=== PATIENT | male | born 1995 | race African-American/Black ===

== ENCOUNTER 2021-06-13 15:25 | Inpatient (IN) | payer OTHER ==
[~2021-06-13] VITALS: Ht 170.2 cm; Wt 98.4 kg
[2021-06-13] MEDS: ACETAMINOPHEN 325 MG TABLET PO PRN (19:07)
[2021-06-13] MEDS: HYDROCODONE/ACETAMINOPHEN 5-325 MG TABLET PO PRN (19:20)
[2021-06-13] MEDS: SENNA 187 MG TABLET PO SCH (20:51)
[2021-06-13] MEDS: DOCUSATE SODIUM 250 MG CAPSULE PO SCH (20:51)
[2021-06-13] MEDS ORDERED: DOCUSATE SODIUM 100 MG CAPSULE PO SCH (21:00)
[2021-06-13 22:08] VITALS: BP 131/77
[2021-06-13 22:11] VITALS: BP 131/77
[2021-06-13] MEDS: GABAPENTIN 300 MG CAPSULE PO SCH (23:31)
[2021-06-14 00:08] VITALS: BP 130/73
[2021-06-14] MEDS: HYDROCODONE/ACETAMINOPHEN 5-325 MG TABLET PO PRN ×3 (02:38→19:47)
[2021-06-14] MEDS: GABAPENTIN 300 MG CAPSULE PO SCH ×3 (08:00→23:13)
[2021-06-14] MEDS: DOCUSATE SODIUM 250 MG CAPSULE PO SCH ×2 (08:00→19:47)
[2021-06-14] MEDS: ACETAMINOPHEN 325 MG TABLET PO PRN (08:01)
[2021-06-14 09:25] VITALS: BP 134/95
[2021-06-14 15:02] LABS: BASOPHILS % (AUTO) 0.3 % (0.0-2.0); EOSINOPHILS % (AUTO) 1.8 % (1.0-6.0); HEMATOCRIT 40.3 % (41-53); HEMOGLOBIN 13.6 g/dL (13.5-17.5); LYMPHOCYTES # (AUTO) 1.5 K/uL (1.0-4.8); LYMPHOCYTES % (AUTO) 27.1 % (22.0-44.0); MEAN CORPUSCULAR HEMOGLOBIN 28.2 pg (26.0-34.0); MEAN CORPUSCULAR HGB CONC 33.7 G/dL (31.0-37.0); MEAN CORPUSCULAR VOLUME 84 fL (80-100); MONOCYTES # (AUTO) 0.3 K/uL (0.1-1.0); MONOCYTES % (AUTO) 6.3 % (2.0-9.0); NEUTROPHILS # (AUTO) 3.5 K/uL (1.8-7.7); NEUTROPHILS % (AUTO) 64.5 % (40.0-70.0); PLATELET COUNT (AUTO) 224 K/uL (150-450); RED BLOOD CELL COUNT(AUTO) 4.81 MIL/uL (4.50-5.90); RED CELL DISTRIBUTION WIDTH 12.6 % (11.5-14.5)
[2021-06-14 15:14] VITALS: BP 123/78
[2021-06-14] MEDS: IBUPROFEN 400 MG TABLET PO PRN (15:14)
[2021-06-14 15:18] LABS: ALANINE AMINOTRANSFERASE 51 U/L (12-78); ALBUMIN 3.8 g/dL (3.4-5.0); ALKALINE PHOSPHATASE 82 U/L (46-116); ANION GAP 10 mmol/L (8-16); ASPARTATE AMINOTRANSFERASE 33 U/L (15-37); BILIRUBIN,TOTAL 0.5 mg/dL (0.1-1.0); CARBON DIOXIDE 29 mmol/L (22-29); CHLORIDE 96 mmol/L (98-107); CREATININE 0.94 mg/dL (0.60-1.30); GLOMERULAR FILTR. RATE CALC > 60 mL/min (>60); GLUCOSE,RANDOM 90 mg/dL (70-110); POTASSIUM 4.1 mmol/L (3.5-5.1); SODIUM SERUM 135 mmol/L (136-145); TOTAL PROTEIN, SERUM 8.3 g/dL (6.4-8.2); UREA NITROGEN, BLOOD 10 mg/dL (7-18)
[2021-06-14] MEDS: SENNA 187 MG TABLET PO SCH (19:47)
[2021-06-14] MEDS: HEPARIN SODIUM,PORCINE 5,000 UNITS/ML VIAL SQ SCH (23:13)
[2021-06-15] VITALS: BP 120/73
[2021-06-15] MEDS: IBUPROFEN 400 MG TABLET PO PRN ×2 (03:47→17:15)
[2021-06-15] MEDS: ETHYL ALCOHOL 62% ANTISEPTIC NASAL INHALANT 0.6 ML AMPUL NASAL SCH ×2 (08:15→20:08)
[2021-06-15] MEDS: GABAPENTIN 300 MG CAPSULE PO SCH ×3 (08:15→23:47)
[2021-06-15] MEDS: DOCUSATE SODIUM 250 MG CAPSULE PO SCH ×2 (08:15→20:08)
[2021-06-15] MEDS: HEPARIN SODIUM,PORCINE 5,000 UNITS/ML VIAL SQ SCH ×3 (08:15→23:47)
[2021-06-15] MEDS: ACETAMINOPHEN 325 MG TABLET PO PRN (08:23)
[2021-06-15 09:05] VITALS: BP 104/58
[2021-06-15 16:01] VITALS: BP 120/75
[2021-06-15] MEDS: HYDROCODONE/ACETAMINOPHEN 5-325 MG TABLET PO PRN (18:03)
[2021-06-15] MEDS: SENNA 187 MG TABLET PO SCH (20:08)
[2021-06-16] VITALS: BP 115/71
[2021-06-16 07:44] VITALS: BP 117/65
[2021-06-16] MEDS: IBUPROFEN 400 MG TABLET PO PRN ×2 (07:44→23:31)
[2021-06-16] MEDS: GABAPENTIN 300 MG CAPSULE PO SCH ×3 (07:44→23:26)
[2021-06-16] MEDS: DOCUSATE SODIUM 250 MG CAPSULE PO SCH ×2 (08:14→20:50)
[2021-06-16] MEDS: HEPARIN SODIUM,PORCINE 5,000 UNITS/ML VIAL SQ SCH ×3 (08:14→23:27)
[2021-06-16] MEDS: HYDROCODONE/ACETAMINOPHEN 5-325 MG TABLET PO PRN ×2 (08:14→18:33)
[2021-06-16] MEDS: ETHYL ALCOHOL 62% ANTISEPTIC NASAL INHALANT 0.6 ML AMPUL NASAL SCH ×2 (09:08→20:50)
[2021-06-16 16:19] VITALS: BP 142/51
[2021-06-16] MEDS: SENNA 187 MG TABLET PO SCH (20:50)
[2021-06-16 23:31] VITALS: BP 124/75
[2021-06-17] MEDS ORDERED: SENN8.8S6 PO (04:33)
[2021-06-17] MEDS ORDERED: GABA-1181 PO (04:33)
[2021-06-17] MEDS ORDERED: DOCU-350 PO (04:33)
[2021-06-17] MEDS ORDERED: ERGO500054 PO (04:38)
[2021-06-17] MEDS ORDERED: ACET-2247 PO (04:38)
[2021-06-17] MEDS ORDERED: IBUP-1506 PO (04:38)
[2021-06-17] MEDS: HEPARIN SODIUM,PORCINE 5,000 UNITS/ML VIAL SQ SCH ×3 (08:08→23:03)
[2021-06-17] MEDS: GABAPENTIN 300 MG CAPSULE PO SCH ×3 (08:08→23:03)
[2021-06-17] MEDS: ETHYL ALCOHOL 62% ANTISEPTIC NASAL INHALANT 0.6 ML AMPUL NASAL SCH ×2 (08:08→21:29)
[2021-06-17] MEDS: DOCUSATE SODIUM 250 MG CAPSULE PO SCH ×2 (08:10→21:29)
[2021-06-17 08:15] VITALS: BP 116/51
[2021-06-17] MEDS: IBUPROFEN 400 MG TABLET PO PRN (08:15)
[2021-06-17 16:22] VITALS: BP 143/78
[2021-06-17] MEDS: HYDROCODONE/ACETAMINOPHEN 5-325 MG TABLET PO PRN ×2 (16:22→23:03)
[2021-06-17] MEDS: SENNA 187 MG TABLET PO SCH (21:29)
[2021-06-17 23:03] VITALS: BP 128/77
[2021-06-18 08:44] VITALS: BP 117/78
[2021-06-18] MEDS: ETHYL ALCOHOL 62% ANTISEPTIC NASAL INHALANT 0.6 ML AMPUL NASAL SCH ×2 (08:44→20:49)
[2021-06-18] MEDS: HYDROCODONE/ACETAMINOPHEN 5-325 MG TABLET PO PRN (08:44)
[2021-06-18] MEDS: GABAPENTIN 300 MG CAPSULE PO SCH ×2 (08:44→15:33)
[2021-06-18] MEDS: HEPARIN SODIUM,PORCINE 5,000 UNITS/ML VIAL SQ SCH ×3 (08:44→15:37)
[2021-06-18] MEDS: DOCUSATE SODIUM 250 MG CAPSULE PO SCH ×2 (08:44→20:48)
[2021-06-18 16:00] VITALS: BP 139/64
[2021-06-18] MEDS: SENNA 187 MG TABLET PO SCH (20:48)
[2021-06-19] MEDS: GABAPENTIN 300 MG CAPSULE PO SCH ×4 (00:01→23:32)
[2021-06-19] MEDS: HEPARIN SODIUM,PORCINE 5,000 UNITS/ML VIAL SQ SCH ×4 (00:03→23:33)
[2021-06-19 00:08] VITALS: BP 134/91
[2021-06-19] MEDS: HYDROCODONE/ACETAMINOPHEN 5-325 MG TABLET PO PRN ×2 (00:08→16:38)
[2021-06-19 08:01] VITALS: BP 112/63
[2021-06-19] MEDS: ETHYL ALCOHOL 62% ANTISEPTIC NASAL INHALANT 0.6 ML AMPUL NASAL SCH ×2 (08:39→20:42)
[2021-06-19] MEDS: DOCUSATE SODIUM 250 MG CAPSULE PO SCH ×2 (08:39→20:42)
[2021-06-19] MEDS: IBUPROFEN 400 MG TABLET PO PRN (08:40)
[2021-06-19] MEDS: SENNA 187 MG TABLET PO SCH (20:42)
[2021-06-20] VITALS: BP 122/66
[2021-06-20] MEDS: HYDROCODONE/ACETAMINOPHEN 5-325 MG TABLET PO PRN (03:11)
[2021-06-20 08:30] VITALS: BP 94/49
[2021-06-20] MEDS: ETHYL ALCOHOL 62% ANTISEPTIC NASAL INHALANT 0.6 ML AMPUL NASAL SCH ×2 (08:52→19:59)
[2021-06-20] MEDS: HEPARIN SODIUM,PORCINE 5,000 UNITS/ML VIAL SQ SCH ×3 (08:52→23:42)
[2021-06-20] MEDS: GABAPENTIN 300 MG CAPSULE PO SCH ×3 (08:52→23:42)
[2021-06-20] MEDS: DOCUSATE SODIUM 250 MG CAPSULE PO SCH ×2 (08:52→19:59)
[2021-06-20 10:00] VITALS: BP 107/72
[2021-06-20] MEDS: IBUPROFEN 400 MG TABLET PO PRN ×2 (15:12→23:45)
[2021-06-20 16:01] VITALS: BP 126/72
[2021-06-20] MEDS: SENNA 187 MG TABLET PO SCH (19:59)
[2021-06-21] VITALS: BP 135/71
[2021-06-21 07:39] VITALS: BP 117/42
[2021-06-21] MEDS: DOCUSATE SODIUM 250 MG CAPSULE PO SCH ×2 (08:24→20:45)
[2021-06-21] MEDS: HEPARIN SODIUM,PORCINE 5,000 UNITS/ML VIAL SQ SCH ×3 (08:24→23:45)
[2021-06-21] MEDS: IBUPROFEN 400 MG TABLET PO PRN ×2 (08:24→16:22)
[2021-06-21] MEDS: GABAPENTIN 300 MG CAPSULE PO SCH ×3 (08:24→23:46)
[2021-06-21] MEDS: ETHYL ALCOHOL 62% ANTISEPTIC NASAL INHALANT 0.6 ML AMPUL NASAL SCH ×2 (08:24→20:45)
[2021-06-21 16:00] VITALS: BP 132/69
[2021-06-21] MEDS: SENNA 187 MG TABLET PO SCH (20:45)
[2021-06-22] VITALS: BP 130/78
[2021-06-22] MEDS: HYDROCODONE/ACETAMINOPHEN 5-325 MG TABLET PO PRN (05:59)
[2021-06-22] MEDS: HEPARIN SODIUM,PORCINE 5,000 UNITS/ML VIAL SQ SCH ×3 (08:32→23:20)
[2021-06-22] MEDS: DOCUSATE SODIUM 250 MG CAPSULE PO SCH ×2 (08:32→20:30)
[2021-06-22] MEDS: ETHYL ALCOHOL 62% ANTISEPTIC NASAL INHALANT 0.6 ML AMPUL NASAL SCH ×2 (08:32→20:30)
[2021-06-22 08:59] VITALS: BP 119/54
[2021-06-22 12:30] VITALS: BP 122/85
[2021-06-22 16:46] VITALS: BP 117/66
[2021-06-22] MEDS: IBUPROFEN 400 MG TABLET PO PRN (18:30)
[2021-06-22] MEDS: SENNA 187 MG TABLET PO SCH (20:30)
[2021-06-23] VITALS: BP 130/82
[2021-06-23 08:01] VITALS: BP 105/67
[2021-06-23] MEDS: HEPARIN SODIUM,PORCINE 5,000 UNITS/ML VIAL SQ SCH ×3 (09:31→23:18)
[2021-06-23] MEDS: ETHYL ALCOHOL 62% ANTISEPTIC NASAL INHALANT 0.6 ML AMPUL NASAL SCH ×2 (09:31→20:21)
[2021-06-23] MEDS: DOCUSATE SODIUM 250 MG CAPSULE PO SCH ×2 (09:31→20:20)
[2021-06-23] MEDS: IBUPROFEN 400 MG TABLET PO PRN ×2 (09:32→20:21)
[2021-06-23 16:54] VITALS: BP 120/65
[2021-06-23] MEDS: SENNA 187 MG TABLET PO SCH (20:20)
[2021-06-24] VITALS: BP 128/60
[2021-06-24] MEDS: HEPARIN SODIUM,PORCINE 5,000 UNITS/ML VIAL SQ SCH ×3 (08:31→23:54)
[2021-06-24] MEDS: ETHYL ALCOHOL 62% ANTISEPTIC NASAL INHALANT 0.6 ML AMPUL NASAL SCH ×2 (08:31→20:28)
[2021-06-24] MEDS: DOCUSATE SODIUM 250 MG CAPSULE PO SCH ×2 (08:31→20:28)
[2021-06-24 09:31] VITALS: BP 111/56
[2021-06-24 16:41] VITALS: BP 135/73
[2021-06-24] MEDS: SENNA 187 MG TABLET PO SCH (20:28)
[2021-06-24] MEDS: IBUPROFEN 400 MG TABLET PO PRN (20:30)
[2021-06-25] VITALS: BP 117/63
[2021-06-25] MEDS: ETHYL ALCOHOL 62% ANTISEPTIC NASAL INHALANT 0.6 ML AMPUL NASAL SCH ×2 (08:32→20:21)
[2021-06-25] MEDS: DOCUSATE SODIUM 250 MG CAPSULE PO SCH ×2 (08:32→20:21)
[2021-06-25] MEDS: HEPARIN SODIUM,PORCINE 5,000 UNITS/ML VIAL SQ SCH ×3 (08:32→23:48)
[2021-06-25 09:01] VITALS: BP 127/64
[2021-06-25] MEDS: IBUPROFEN 400 MG TABLET PO PRN (13:17)
[2021-06-25 16:02] VITALS: BP 102/66
[2021-06-25] MEDS: SENNA 187 MG TABLET PO SCH (20:21)
[2021-06-26] VITALS: BP 115/70
[2021-06-26] MEDS ORDERED: ASPI-989 PO (06:59)
[2021-06-26] MEDS: ETHYL ALCOHOL 62% ANTISEPTIC NASAL INHALANT 0.6 ML AMPUL NASAL SCH (07:45)
[2021-06-26] MEDS: DOCUSATE SODIUM 250 MG CAPSULE PO SCH (07:46)
[2021-06-26] MEDS: HEPARIN SODIUM,PORCINE 5,000 UNITS/ML VIAL SQ SCH (07:46)
[2021-06-26 09:04] VITALS: BP 125/65
[2021-06-27] MEDS ORDERED: ERGOCALCIFEROL (VIT D2) 50,000 UNITS [1,250 MCG] CAPSULE PO SCH (09:00)
== END 2021-06-26 10:30 | disposition home or self-care (01) | DRG 563 ==
LOC: 2WR 18:10
PROVIDERS: ADMIT Physical Medicine & Rehabilitation; ATTEND Physical Medicine & Rehabilitation
DX: S82.202A Unspecified fracture of shaft of left tibia, initial encounter for closed fracture (principal); V00.148A Other scooter (nonmotorized) accident, initial encounter; R26.9 Unspecified abnormalities of gait and mobility; M79.605 Pain in left leg; K59.00 Constipation, unspecified; V00.141A Fall from scooter (nonmotorized), initial encounter; S62.502A Fracture of unspecified phalanx of left thumb, initial encounter for closed fracture
CPT/HCPCS: 80053; 85025; 87081; 97110; 97116; 97150; 97162; 97165; 97530; 97535; 99366; J1644